=== PATIENT | female | born 1995 | race Caucasian/White ===

== ENCOUNTER 2018-02-22 12:16 | Emergency (ER) | payer OTHER ==
[~2018-02-22] VITALS: Ht 162.6 cm; Wt 88.4 kg
[2018-02-22] MEDS ORDERED: DIPHENHYDRAMINE 50 MG/ML, 1ML ONE (13:27)
[2018-02-22] MEDS ORDERED: KETOROLAC 30 MG/1 ML ONE (13:27)
[2018-02-22] MEDS ORDERED: PROCHLORPERAZINE 5 MG/ML, 2ML ONE (13:27)
[2018-02-22] MEDS ORDERED: KETOROLAC 30 MG/1 ML IVPush ONE (13:30)
[2018-02-22] MEDS ORDERED: SODIUM CHLORIDE 0.9% 1,000ML IVBOLUS ONE (13:30)
[2018-02-22] MEDS ORDERED: PROCHLORPERAZINE 5 MG/ML, 2ML IVPush ONE (13:30)
[2018-02-22] MEDS ORDERED: DIPHENHYDRAMINE 50 MG/ML, 1ML IVPush ONE (13:30)
[2018-02-22] MEDS ORDERED: SODIUM CHLORIDE FLUSH 10ML SYR IVF ONE (13:30)
[2018-02-22 14:17] VITALS: BP 117/61
== END 2018-02-22 14:23 | disposition home or self-care (01) ==
LOC: ED 14:17
DX: G43.909 Migraine, unspecified, not intractable, without status migrainosus (principal); Z88.1 Allergy status to other antibiotic agents; Z88.5 Allergy status to narcotic agent
CPT/HCPCS: 96361; 96374; 96375; 99284; J0780; J1200; J1885; J7030

== ENCOUNTER 2018-12-05 14:02 | Emergency (ER) | payer OTHER ==
[~2018-12-05] VITALS: Ht 160 cm; Wt 79.7 kg
[2018-12-05 14:07] VITALS: BP 135/85
[2018-12-05 14:36] LABS: MICROSCOPIC INDICATED
[2018-12-05] MEDS ORDERED: SODIUM CHLORIDE 0.9% 1,000 ML IV ONE (15:33)
[2018-12-05] MEDS ORDERED: SODIUM CHLORIDE 0.9% 1,000ML IVBOLUS ONE (16:00)
[2018-12-05] MEDS ORDERED: ONDANSETRON 2MG/ML, 2ML IVPush ONE ×2 (16:00→17:00)
[2018-12-05] MEDS ORDERED: SODIUM CHLORIDE FLUSH 10ML SYR IVF ONE (16:00)
[2018-12-05] MEDS ORDERED: ONDANSETRON 2MG/ML, 2ML ONE ×2 (16:01→16:44)
[2018-12-05 16:10] LABS: BASOPHILS # (AUTO) 0.07 x10^3/uL (0-0.1); BASOPHILS % (AUTO) 1 % (0-1); EOSINOPHILS # (AUTO) 0.01 x10^3/uL (0-0.4); EOSINOPHILS % (AUTO) 0 % (1-7); LYMPHOCYTES # (AUTO) 1.54 x10^3/uL (1-3.4); LYMPHOCYTES % (AUTO) 14 % (22-44); MD NO; MEAN CORPUSCULAR HEMOGLOBIN 29.5 pg (27.0-34.8); MEAN CORPUSCULAR VOLUME 86.6 fL (80-100); MEAN PLATELET VOLUME 9.9 fL (7.4-10.4); MONOCYTES # (AUTO) 0.96 x10^3/uL (0.2-0.8); MONOCYTES % (AUTO) 9 % (2-9); NEUTROPHILS # (AUTO) 8.66 x10^3/uL (1.8-6.8); NEUTROPHILS % (AUTO) 77 % (42-75); PLATELET COUNT 235 x10^3/uL (130-400); RED BLOOD COUNT 5.43 x10^6/uL (3.82-5.3); RED CELL DISTRIBUTION WIDTH 12.6 % (9.6-15.2)
--- NOTE | 2018-12-05 16:19 | NUR ---
PT PRESENTED TO ED WITH N/V SINCE THURSDAY. PT STATED SHE DRANK TOO MUCH ON THURSDAY NIGHT AND HAS HAD VOMITTING SINCE THEN WITH ABD PAIN AND THROAT PAIN. PT A&OX4. ASSESSMENT COMPLETED. IV STARTED AND BLOOD DRAWN. HAS SEEN PT. PT PLACED ON BP AND CONT. PULSE OXIMETER.
[2018-12-05 16:20] LABS: ALANINE AMINOTRANSFERASE 30 U/L (12-78); ALBUMIN 4.4 g/dL (3.4-5.0); ANION GAP 9 mmol/L (5-15); CHLORIDE 102 mmol/L (98-107); CREATININE 0.72 mg/dL (0.55-1.02)
[2018-12-05 16:25] LABS: ALKALINE PHOSPHATASE 67 U/L (45-117); BILIRUBIN,TOTAL 1.4 mg/dL (0.2-1.0); TOTAL PROTEIN 8.2 g/dL (6.4-8.2)
[2018-12-05] MEDS ORDERED: POTASSIUM CHLORIDE 20 MEQ TAB.ER.PRT PO ONE (16:30)
--- NOTE | 2018-12-05 16:54 | NUR ---
pt with nausea. 2nd dose of zofran given
--- NOTE | 2018-12-05 17:10 | NUR ---
PT REFUSING PILL FORM OF POTASSIUM. SPOKE WITH DR. YORK. PT WILL HAVE ORAL POTASSIUM.
[2018-12-05] MEDS ORDERED: OMNIPAQUE 350 MG/ML, 100ML BOTTLE ONE (17:27)
== END 2018-12-05 18:15 | disposition home or self-care (01) ==
LOC: ED 17:14
DX: E87.6 Hypokalemia (principal); E86.0 Dehydration; J45.909 Unspecified asthma, uncomplicated
CPT/HCPCS: 36415; 74177; 80053; 81001; 84703; 85025; 96361; 96374; 96376; 99284; J2405; J7030; Q9967

== ENCOUNTER 2018-12-08 12:45 | Emergency (ER) | payer OTHER ==
[2018-12-08 13:04] VITALS: BP 141/93
[2018-12-08 13:36] LABS: BASOPHILS # (AUTO) 0.04 x10^3/uL (0-0.1); BASOPHILS % (AUTO) 1 % (0-1); EOSINOPHILS # (AUTO) 0.04 x10^3/uL (0-0.4); EOSINOPHILS % (AUTO) 1 % (1-7); LYMPHOCYTES # (AUTO) 1.52 x10^3/uL (1-3.4); LYMPHOCYTES % (AUTO) 19 % (22-44); MD NO; MEAN CORPUSCULAR HEMOGLOBIN 28.9 pg (27.0-34.8); MEAN CORPUSCULAR HGB CONC 33.5 g/dL (32.4-35.8); MEAN CORPUSCULAR VOLUME 86.1 fL (80-100); MONOCYTES # (AUTO) 0.39 x10^3/uL (0.2-0.8); MONOCYTES % (AUTO) 5 % (2-9); NEUTROPHILS # (AUTO) 6.08 x10^3/uL (1.8-6.8); NEUTROPHILS % (AUTO) 75 % (42-75); PLATELET COUNT 184 x10^3/uL (130-400); RED BLOOD COUNT 5.94 x10^6/uL (3.82-5.3); RED CELL DISTRIBUTION WIDTH 12.1 % (9.6-15.2)
[2018-12-08 13:47] LABS: ALANINE AMINOTRANSFERASE 54 U/L (12-78); ALBUMIN 4.2 g/dL (3.4-5.0); ANION GAP 11 mmol/L (5-15); CALCIUM 9.5 mg/dL (8.5-10.1); CHLORIDE 103 mmol/L (98-107)
[2018-12-08 13:49] LABS: ALKALINE PHOSPHATASE 72 U/L (45-117); BILIRUBIN,TOTAL 1.4 mg/dL (0.2-1.0); TOTAL PROTEIN 7.9 g/dL (6.4-8.2)
--- NOTE | 2018-12-08 13:58 | NUR ---
TO ROOM FROM LOBBY. NAD.
--- NOTE | 2018-12-08 14:16 | NUR ---
FIRST CONTACT WITH PT. AGREE WITH TRIAGE. PT STATES ONE EPISODE OF DIARRHEA SIX DAYS AGO, NO BM SINCE. PT C/O ABD CRAMPING, N/V UNRELIEVED WITH ZOFRAN. BSC WITH HAT IN PLACE, URINE CUP PROVIDED. PT AWARE OF CDIFF PRECAUTIONS. FAMILY AT BS. CALL LIGHT WITHIN REACH.
--- NOTE | 2018-12-08 14:25 | NUR ---
URINE COLLECTED/SENT TO LAB.
[2018-12-08] MEDS ORDERED: PROMETHAZINE 25 MG/ML, 1ML IM ONE (14:30)
[2018-12-08] MEDS ORDERED: MAALOX/HYOSCYAMINE/LIDOCAINE 45 ML BTL PO ONE (14:30)
[2018-12-08] MEDS ORDERED: PROMETHAZINE 25 MG/ML, 1ML ONE (14:35)
[2018-12-08] MEDS ORDERED: MAALOX/HYOSCYAMINE/LIDOCAINE 45 ML BTL ONE (14:35)
[2018-12-08 14:41] LABS: MICROSCOPIC INDICATED
--- NOTE | 2018-12-08 14:45 | NUR ---
MED GIVEN PER ERP ORDER. CALL LIGHT WITHIN REACH, WARM BLANKET PROVIDED.
[2018-12-08 14:51] LABS: CULTURE INDICATED? YES
--- NOTE | 2018-12-08 15:38 | NUR ---
Patient/Caregiver given discharge instructions and they have confirmed that they understand the instructions. Patient ambulatory with steady gait.
== END 2018-12-08 15:39 | disposition home or self-care (01) ==
LOC: ED 15:29
DX: R10.12 Left upper quadrant pain (principal); R11.2 Nausea with vomiting, unspecified; J45.909 Unspecified asthma, uncomplicated; Z88.0 Allergy status to penicillin; Z88.5 Allergy status to narcotic agent
CPT/HCPCS: 36415; 80053; 81001; 83690; 85025; 87086; 93005; 96372; 99284; J2550